=== PATIENT | male | born 1950 | race Caucasian/White ===

== ENCOUNTER 2018-02-11 20:19 | Inpatient (IN) | payer MEDICARE ==
[~2018-02-11 20:19] MED LIST: ISOVUE-370 76%-LOCM 1 ML ONE
[2018-02-11 23:14] VITALS: BMI 40.1
[2018-02-11] MEDS ORDERED: Sodium Chloride 0.9% 10 ML ONE (23:27)
--- NOTE | 2018-02-11 23:30 | CT ---
CT ANGIOGRAM THORAX WITH IV CONTRAST AND 3D RECONSTRUCTIONS: 02/11/18 HISTORY: Sepsis. Transfer from [place]. Fever and chills. COMPARISON: None available. FINDINGS: There is suboptimal timing of the contrast bolus with limited opacification of the pulmonary arteries limiting evaluation for pulmonary emboli. No definite pulmonary embolus is seen involving the centra l pulmonary arteries, but the segmental and subsegmental pulmonary arteries are not adequately evalua vandana. Vascular calcifications are seen in the thoracic aorta. The thoracic aorta is normal in caliber witho ut evidence of an aortic dissection. There is no evidence of lymphadenopathy. There is a tiny approximately 4 mm nodular density seen in the right middle lobe adjacent to the fiss ure and has a slight linear configuration and may be related to minimal pleural thickening. No additi onal discrete pulmonary nodule or mass is seen. There is dependent atelectasis present at each lung b ase. No pleural effusion is identified. There is a stable right adrenal nodule measuring 2.2 cm shown to represent an adrenal adenoma on prio r CT abdomen on 08/07/16. There is also stable nodular appearance of the left adrenal gland unchanged from prior exam and is also stable when compared to a study in 2009. There is a stable hypodense lesions seen within the medial aspect of the right hepatic lobe which can not be further characterized on this nonenhanced CT exam. This measures approximately 1.5 cm. Remainder of the upper abdomen demonstrates a normal CT appearance. Degenerative changes are present in the spine. IMPRESSION: 1. Suboptimal timing of the contrast bolus limiting evaluation for pulmonary embolus. 2. Vascular calcifications are seen in the thoracic aorta which is normal in caliber without patience dence of an aortic dissection. 3. Atelectasis bilaterally. 4. Stable right adrenal adenoma with stable nodular appearance of the left adrenal gland. 5. Stable hypodense lesion within the right hepatic lobe which cannot be further characterized o n this nonenhanced CT scan exam. POS: [facility]
[2018-02-11] MEDS: Sodium Chloride 0.9% 1,000 ML IV SCH (23:32)
[2018-02-11] MEDS ORDERED: Sodium Chloride 0.9% 1,000 ML IV SCH (23:45)
[2018-02-12] MEDS ORDERED: Ondansetron ODT 4 MG TAB SL PRN (00:01)
[2018-02-12] MEDS ORDERED: Ondansetron PF 4 MG/2 ML Vial IVP PRN ×2 (00:01→07:49)
[2018-02-12] MEDS ORDERED: cefTRIAXone\\ROCEPHIN 1 GM in Sodium Chloride 0.9% 100 ML IVPB SCH (01:00)
[2018-02-12] MEDS: Sodium Chloride 0.9% 1,000 ML IV SCH (05:45)
[2018-02-12] MEDS ORDERED: Senokot S 8.6-50 MG TAB PO PRN (07:49)
[2018-02-12] MEDS ORDERED: Ondansetron ODT 4 MG TAB PO PRN (07:49)
[2018-02-12] MEDS ORDERED: Nitroglycerin 0.4 MG TAB (25 Tab Bottle) PO PRN (07:51)
[2018-02-12 08:18] LABS: #Lymphocytes 1.6 thou/uL (1.20-3.40); #Monocytes 0.7 thou/uL (0.11-0.59); #Neutrophils 10.4 thou/uL (1.40-6.50); %Basophils 0.2 % (0.0-1.0); %Eosinophils 0.1 % (0.0-10.0); %Lymphocytes 12.8 % (21.0-51.0); %Monocytes 5.6 % (0.0-10.0); %Neutrophils 81.3 % (42.0-75.0); Hemoglobin 13.9 g/dL (14.0-18.0); Mean Corpuscular Hemoglobin 29.2 pg (27.0-31.0); Mean Corpuscular Volume 91.2 fL (78.0-98.0); Mean Platelet Volume 9.7 fL (7.4-10.4); Platelet Count 139 thou/uL (130-400); Red Blood Cell (RBC) Count 4.76 mill/uL (4.70-6.10); White Blood Cell (WBC) Count 12.8 thou/uL (4.8-10.8)
[2018-02-12 08:29] LABS: Lactic Acid 1.4 mmol/L (0.5-2.2)
[2018-02-12 08:31] LABS: Anion Gap 6 mmol/L (10-20); BUN (Urea Nitrogen) 13 mg/dL (8.4-25.7); Calc. Creatinine Clearance 145 mL/min (70-130); Calcium 8.3 mg/dL (7.8-10.44); Carbon Dioxide 25 mmol/L (23-31); Chloride 110 mmol/L (98-107); Estimated GFR-MDRD 80; Glucose 101 mg/dL (80-115); Magnesium 1.5 mg/dL (1.6-2.6); Sodium 137 mmol/L (136-145)
[2018-02-12] MEDS ORDERED: Prevnar 13-Val Conj/PF 0.5 ML SYRINGE IM ONE (09:00)
[2018-02-12] MEDS ORDERED: Magnesium 2 GM/50 ML 2 GM in Premix Bag 1 BAG IVPB SCH (09:00)
[2018-02-12] MEDS ORDERED: Doxycycline 100 MG CAP PO SCH (09:00)
[2018-02-12] MEDS: Enoxaparin Sodium 40 MG/0.4 ML SYRINGE SC SCH (10:09)
[2018-02-12] MEDS: Famotidine 20 MG TAB PO SCH ×2 (10:09→20:21)
--- NOTE | 2018-02-12 10:12 | ULT ---
RENAL ULTRASOUND: HISTORY: UTI with frequency. TECHNIQUE: Real-time imaging of the right and left kidneys was performed. FINDINGS: The right kidney measures 10.8 and the left kidney 12.9 cm in size. No signs of cyst, mass, or obstr uction. There is an echogenic focus within the right kidney, potentially a stone within the calyx, a nd a similar density in the left kidney. The patient had voided immediately prior to this examination, but the post void volume was 203 mL. B ilateral ureteral jets were noted. IMPRESSION: 1. Echogenic, nonshadowing densities within the cortex of both kidneys. Potentially these are nonob structing stones within the calices, although not entirely typical in appearance. Other entities, polk ch as angiomyolipoma, would be possibilities. No signs of obstruction. 2. Moderate post-void residual. POS: [facility]
[2018-02-12] MEDS: Sodium Chloride 0.45% 1,000 ML IV SCH (11:04)
[2018-02-12] MEDS: cefTRIAXone\\ROCEPHIN 2 GM in Sodium Chloride 0.9% 100 ML IVPB SCH (11:05)
--- NOTE | 2018-02-12 11:09 | HP ---
DATE OF ADMISSION: 02/12/2018 PRIMARY CARE PHYSICIAN: Dr. Gregory. PRIMARY UROLOGIST: The patient has seen Dr. Gray in the past. CHIEF COMPLAINT: Fever and chills. HISTORY OF PRESENT ILLNESS: Patient is a 67-year-old male with benign prostatic hypertrophy, present ed to [facility] with generalized weakness, fever, and chills. He also had some nonprod uctive cough. There was mild shortness of breath on mild to moderate exertion. He denies any nausea , vomiting, dysuria, hematuria, urgency, altered mentation, or skin rash. No chest pain, shortness o f breath, or palpitations reported. In the emergency room at [facility], his initial vital signs showed temperature of 101.4, respirations 20, pulse rate of 148 with blood pressure 163/95 with O2 saturation of 95% on room air. His lactic a boaz was 3.9. Chest x-ray showed questionable infiltrate. He was sent to this facility after one dos e of Levaquin and IV fluids. EKG showed sinus tachycardia. At this facility, he underwent a CT angiogram of the chest that showed bibasilar atelectasis. The st udy was suboptimal for pulmonary embolism. There was a stable right adrenal adenoma as well as stabl e hypodense lesion in the right hepatic lobe. PAST MEDICAL HISTORY: Benign prostatic hypertrophy requiring Rivera catheter in the past, history of enlarged heart many years ago. He has not followed up. PAST SURGICAL HISTORY: Cystoscopy, hemorrhoid surgery more than 20 years ago. ALLERGIES: No known drug allergies. CURRENT HOME MEDICATIONS: Reviewed with the patient and none. SOCIAL HISTORY: Patient currently lives at home with his son. His of breast cancer . He quit smoking more than 10 years ago. He is independent of activities of daily living. He is D O NOT RESUSCITATE. Son is the decision maker. FAMILY HISTORY: Father with lung cancer. REVIEW OF SYSTEMS: The following complete review of systems was negative, unless otherwise mentioned in the HPI or below: Constitutional: Weight loss or gain, ability to conduct usual activities. Skin: Rash, itching. Eyes: Double vision, pain. ENT/Mouth: Nose bleeding, neck stiffness, pain, tenderness. Cardiovascular: Palpitations, dyspnea on exertion, orthopnea. Respiratory: Shortness of breath, wheezing, cough, hemoptysis, fever or night sweats. Gastrointestinal: Poor appetite, abdominal pain, heartburn, nausea, vomiting, constipation, or diarr hea. Genitourinary: Urgency, frequency, dysuria, nocturia. Musculoskeletal: Pain, swelling. Neurologic/Psychiatric: Anxiety, depression. Allergy/Immunologic: Skin rash, bleeding tendency. PHYSICAL EXAMINATION: VITAL SIGNS: As discussed above. GENERAL: A 67-year-old male in no apparent distress, feels better. HEENT: Head atraumatic, normocephalic. Sclerae are anicteric. Moist mucous membrane, no oral lesio n. NECK: Supple. No JVD appreciated. No carotid bruit. LUNGS: Clear to auscultation bilaterally. HEART: S1, S2 present. Regular rate and rhythm. No rubs or gallops appreciated. ABDOMEN: Soft, nontender, bowel sounds present. EXTREMITIES: No edema or calf tenderness. NEUROLOGIC: Grossly nonfocal, moves all four extremities. PSYCHIATRY: Alert, awake, oriented x3. SKIN: Warm and dry. LYMPH NODES: No palpable lymph nodes in the neck. PERIPHERAL VASCULAR: Radial pulses palpable bilaterally. LABORATORY FINDINGS: Repeat lactic acid 1.4 from 3.9. WBC 12.8 with 87% neutrophils. D-dimer 1.24. Urinalysis showed greater than 50 wbc's with 4+ bacteria. Troponin was negative. BNP was negative . Influenza testing was negative. Chest x-ray by my review as discussed above. CT angiogram by my review as discussed above. IMPRESSION AND PLAN: 1. Sepsis with acute organ dysfunction secondary to urinary tract infection, rule out obstructive ur opathy. 2. Sinus tachycardia with heart rate of 148, probably supraventricular tachycardia. Her heart rate at this time is in 90s. 3. Benign prostatic hypertrophy requiring Rivera catheter in the past. 4. Metabolic acidosis/lactic acidosis secondary to sepsis. 5. Leukocytosis secondary to #1. 6. Chronic kidney disease stage 2. 7. Morbid obesity with a BMI 40.2. 8. History of cardiomyopathy with shortness of breath on ER arrival, rule out congestive heart failu re. 9. Hypomagnesemia. PLAN: The patient will be monitored on the telemetry unit. We will continue IV fluids. Continue ce ftriaxone. We will replace magnesium. Nebulizer treatment as needed. Vital signs q.4 hourly. Echo cardiogram will be obtained. We will consult walking program. DO NOT RESUSCITATE confirmed with the patient. Plan of care was discussed with the patient in detail . He stated understanding.
[2018-02-12] MEDS: Acetaminophen 325 MG TAB PO PRN ×3 (11:22→23:56)
[2018-02-12] MEDS ORDERED: Labetalol HCl 100 MG/20 ML VIAL SLOW IVP PRN (19:48)
[2018-02-12] MEDS ORDERED: Tamsulosin HCl 0.4 MG CAP PO SCH (21:00)
[2018-02-13] MEDS: Sodium Chloride 0.45% 1,000 ML IV SCH ×4 (04:33→21:26)
[2018-02-13 06:24] LABS: #Lymphocytes 1.2 thou/uL (1.20-3.40); #Monocytes 0.6 thou/uL (0.11-0.59); %Basophils 0.4 % (0.0-1.0); %Eosinophils 0.3 % (0.0-10.0); %Lymphocytes 16.7 % (21.0-51.0); %Monocytes 9.4 % (0.0-10.0); %Neutrophils 73.3 % (42.0-75.0); Hemoglobin 14.1 g/dL (14.0-18.0); Mean Corpuscular HGB CONC 31.2 g/dL (32.0-36.0); Mean Corpuscular Hemoglobin 28.1 pg (27.0-31.0); Mean Platelet Volume 10.4 fL (7.4-10.4); Platelet Count 144 thou/uL (130-400); RBC Distribution Width 12.1 % (11.5-14.5); Red Blood Cell (RBC) Count 5.02 mill/uL (4.70-6.10); White Blood Cell (WBC) Count 6.9 thou/uL (4.8-10.8)
[2018-02-13 06:52] LABS: ALT (SGPT) 14 U/L (8-55); AST (SGOT) 16 U/L (5-34); Albumin 3.5 g/dL (3.4-4.8); Alkaline Phosphatase 63 U/L (40-150); Anion Gap 12 mmol/L (10-20); BUN (Urea Nitrogen) 9 mg/dL (8.4-25.7); Bilirubin, Total 0.4 mg/dL (0.2-1.2); Calc. Creatinine Clearance 150 mL/min (70-130); Calcium 8.7 mg/dL (7.8-10.44); Carbon Dioxide 19 mmol/L (23-31); Chloride 110 mmol/L (98-107); Estimated GFR-MDRD 84; Globulin 3.3 g/dL (2.4-3.5); Glucose 103 mg/dL (80-115); Magnesium 2.2 mg/dL (1.6-2.6); Potassium 3.9 mmol/L (3.5-5.1); Protein, Total 6.8 g/dL (5.8-8.1); Sodium 137 mmol/L (136-145)
[2018-02-13] MEDS: cefTRIAXone\\ROCEPHIN 2 GM in Sodium Chloride 0.9% 100 ML IVPB SCH (08:57)
[2018-02-13] MEDS: Metoprolol Tartrate 25 MG TAB PO SCH ×2 (08:58→20:46)
[2018-02-13] MEDS: Tamsulosin HCl 0.4 MG CAP PO SCH ×2 (08:58→20:47)
[2018-02-13] MEDS: Enoxaparin Sodium 40 MG/0.4 ML SYRINGE SC SCH (08:58)
[2018-02-13] MEDS: Famotidine 20 MG TAB PO SCH ×2 (08:58→20:47)
--- NOTE | 2018-02-13 14:33 | PDOC.PN ---
- Subjective Encounter Start Date: 02/13/18 Encounter Start Time: 10:30 Patient seen and examined for Sepsis. Feels better. Urinary frequency/hesitancy/ fever last night. No other complaints. Overnight events noted - Objective Resuscitation Status: Resuscitation Status DNR:Do Not Resuscitate MAR Reviewed: Yes Vital Signs & Weight: Vital Signs (12 hours) Temp Pulse Resp BP Pulse Ox 02/13/18 11:26 98.1 F 93 16 148/67 H 96 02/13/18 11:18 88 20 02/13/18 08:56 113 H 140/78 02/13/18 08:05 116 H 20 95 02/13/18 08:00 97.7 F 112 H 18 179/91 H 96 02/13/18 04:32 109 H 20 142/76 H 02/13/18 03:10 97.7 F 100 17 169/88 H 95 02/13/18 02:32 94 16 95 Weight Weight 292 lb 14.4 oz I&O: 02/12/18 02/13/18 02/14/18 06:59 06:59 06:59 Intake Total 910 981 Output Total 400 950 Balance 510 31 Result Diagrams: 02/13/18 06:04 02/13/18 06:04 Radiology Reviewed by me: Yes (CXR - neg) EKG Reviewed by me: Yes (Tele ST) Phys Exam - Physical Examination Constitutional: NAD Respiratory: no wheezing, no rales, no rhonchi, clear to auscultation bilateral Cardiovascular: RRR, no rub no heaves/pulsations Gastrointestinal: soft, non-tender, no distention, positive bowel sounds Musculoskeletal: no edema, pulses present Neurological: non-focal, normal sensation, moves all 4 limbs Psychiatric: A&O x 3 Dx/Plan - Plan 1. Sepsis with acute organ dysfunction secondary to E coli bacteremia/E coli UTI Cont Ceftriaxone DC Levaquin 2. Sinus tachycardia with heart rate of 148, probably supraventricular tachycardia. Add low dose BB Echo reviewed 3. Benign prostatic hypertrophy with obstructive symptoms - Case d/w Dr Felipe Place Rivera catheter Change Flomax to BID Urology f/u on Feb 20 4. Metabolic acidosis/lactic acidosis secondary to sepsis. improving 5. Chronic kidney disease stage 2 / Morbid obesity with a BMI 40.2 / Hypomagnesemia. - replaced / Dilated aortic root 3.95cm on Echo / Chronic diastolic HF Review of Systems - Review of Systems Respiratory: negative: Cough, Dry, Shortness of Breath, Hemoptysis, SOB with Excertion, Pleuritic Pain, Sputum, Wheezing Cardiovascular: negative: chest pain, palpitations, orthopnea, paroxysmal nocturnal dyspnea, edema, light headedness, other - Medications/Allergies Allergies/Adverse Reactions: Allergies Allergy/AdvReac Type Severity Reaction Status Date / Time No Known Allergies Allergy Unverified 02/11/18 23:16 Medications: Current Medications Acetaminophen (Tylenol) 650 mg PO Q4H PRN PRN Reason: Headache/Fever/Mild Pain (1-3) Last Admin: 02/12/18 23:56 Dose: 650 mg Albuterol/Ipratropium (Duoneb) 3 ml NEB [id number] [facility] Last Admin: 02/13/18 11:18 Dose: 3 ml Albuterol/Ipratropium (Duoneb) 3 ml NEB [id number] PRN PRN Reason: SOB &/or Wheezing Enoxaparin Sodium (Lovenox) 40 mg SC 0900 [facility] Last Admin: 02/13/18 08:58 Dose: 40 mg Famotidine (Pepcid) 20 mg PO BID [facility] Last Admin: 02/13/18 08:58 Dose: 20 mg Ceftriaxone Sodium 2 gm/ (Sodium Chloride) 100 mls @ 200 mls/hr IVPB Q24HR [facility] Last Admin: 02/13/18 08:57 Dose: 100 mls Sodium Chloride (1/2 Normal Saline) 1,000 mls @ 75 mls/hr IV .[id number] [facility] Last Admin: 02/13/18 08:59 Dose: 1,000 mls Labetalol HCl (Normodyne) 20 mg SLOW IVP Q6H PRN PRN Reason: SBP GREATER THAN 160 Last Admin: 02/12/18 20:17 Dose: 20 mg Metoprolol Tartrate (Lopressor) 12.5 mg PO BID [facility] Last Admin: 02/13/18 08:58 Dose: 12.5 mg Nitroglycerin (Nitrostat) 0.4 mg PO Q5MIN PRN PRN Reason: Chest Pain Ondansetron HCl (Zofran Odt) 4 mg PO Q6H PRN PRN Reason: Nausea/Vomiting Ondansetron HCl (Zofran) 4 mg IVP Q6H PRN PRN Reason: Nausea/Vomiting Saccharomyces Boulardii (Florastor) 250 mg PO DAILY [facility] Senna/Docusate Sodium (Senokot S) 2 tab PO BID PRN PRN Reason: Constipation Sodium Chloride (Flush - Normal Saline) 10 ml IVF Q12HR [facility] Last Admin: 02/13/18 08:59 Dose: Not Given Sodium Chloride (Flush - Normal Saline) 10 ml IVF PRN PRN PRN Reason: Saline Flush Tamsulosin HCl (Flomax) 0.4 mg PO BID [facility] Last Admin: 02/13/18 08:58 Dose: 0.4 mg
[2018-02-13] MEDS ORDERED: Labetalol HCl 100 MG/20 ML VIAL SLOW IVP PRN (14:50)
[2018-02-14] MEDS: Metoprolol Tartrate 25 MG TAB PO SCH ×2 (09:25→21:14)
[2018-02-14] MEDS: Tamsulosin HCl 0.4 MG CAP PO SCH ×2 (09:25→21:15)
[2018-02-14] MEDS: Famotidine 20 MG TAB PO SCH ×2 (09:25→21:14)
[2018-02-14] MEDS: Saccharomyces boulardii 250 MG CAP PO SCH (09:25)
[2018-02-14] MEDS: Enoxaparin Sodium 40 MG/0.4 ML SYRINGE SC SCH (09:26)
[2018-02-14] MEDS: Sodium Chloride 0.45% 1,000 ML IV SCH (09:29)
[2018-02-14] MEDS: cefTRIAXone\\ROCEPHIN 2 GM in Sodium Chloride 0.9% 100 ML IVPB SCH (09:37)
--- NOTE | 2018-02-14 11:22 | EKG ---
Test Reason : Blood Pressure : / mmHG Vent. Rate : 115 BPM Atrial Rate : 115 BPM P-R Int : 122 ms QRS Dur : 092 ms QT Int : 340 ms P-R-T Axes : 024 016 035 degrees QTc Int : 470 ms Sinus tachycardia Otherwise normal ECG Confirmed by KENYATTA COOLEY, LIBRA ([id number]), editor in chief newspaper ORLIN VIRAMONTES ([id number]) on 02/14/2018 11:22:26 AM Referred By: Confirmed By:LIBRA YOU MD
--- NOTE | 2018-02-14 15:03 | PDOC.PN ---
- Subjective Encounter Start Date: 02/14/18 Encounter Start Time: 11:00 Patient seen and examined for Sepsis. No new complaints. No new CP/SOB/N/V. No overnight events - Objective Resuscitation Status: Resuscitation Status DNR:Do Not Resuscitate MAR Reviewed: Yes Vital Signs & Weight: Vital Signs (12 hours) Temp Pulse Resp BP Pulse Ox 02/14/18 14:21 108 H 24 H 02/14/18 12:00 98.5 F 111 H 22 H 159/83 H 96 02/14/18 10:44 100 24 H 02/14/18 08:55 97.7 F 101 H 18 104/67 94 L 02/14/18 06:49 93 L 02/14/18 06:45 93 20 93 L 02/14/18 03:28 98.0 F 107 H 20 140/89 94 L Weight Weight 292 lb 11.2 oz I&O: 02/13/18 02/14/18 02/15/18 06:59 06:59 06:59 Intake Total 981 1800 Output Total 950 2024 Balance 31 -225 Result Diagrams: 02/13/18 06:04 02/13/18 06:04 EKG Reviewed by me: Yes (Tele SR) Phys Exam - Physical Examination Constitutional: NAD Respiratory: no wheezing, no rhonchi Cardiovascular: RRR, no rub Gastrointestinal: soft, non-tender, positive bowel sounds Musculoskeletal: no edema Neurological: moves all 4 limbs Dx/Plan - Plan DVT proph w/SCDs 1. Sepsis with acute organ dysfunction secondary to E coli bacteremia/E coli UTI Cont Ceftriaxone - Change to Omnicef at dc 2. Sinus tachycardia with heart rate of 148, probably supraventricular tachycardia. Cont low dose BB Echo reviewed 3. Benign prostatic hypertrophy with obstructive symptoms - Case d/w Dr Felipe today Cont Rivera catheter Cont Flomax to BID Urology f/u on Feb 20 at 8 am 4. Metabolic acidosis/lactic acidosis secondary to sepsis. improving 5. Chronic kidney disease stage 2 / Morbid obesity with a BMI 40.2 / Hypomagnesemia. - replaced / Dilated aortic root 3.95cm on Echo / Chronic diastolic HF Review of Systems - Review of Systems Respiratory: negative: Cough, Dry, Shortness of Breath, Hemoptysis, SOB with Excertion, Pleuritic Pain, Sputum, Wheezing Cardiovascular: negative: chest pain, palpitations, orthopnea, paroxysmal nocturnal dyspnea, edema, light headedness, other - Medications/Allergies Allergies/Adverse Reactions: Allergies Allergy/AdvReac Type Severity Reaction Status Date / Time No Known Allergies Allergy Unverified 02/11/18 23:16 Medications: Current Medications Acetaminophen (Tylenol) 650 mg PO Q4H PRN PRN Reason: Headache/Fever/Mild Pain (1-3) Last Admin: 02/12/18 23:56 Dose: 650 mg Albuterol/Ipratropium (Duoneb) 3 ml NEB [id number] [facility] Last Admin: 02/14/18 14:21 Dose: 3 ml Albuterol/Ipratropium (Duoneb) 3 ml NEB [id number] PRN PRN Reason: SOB &/or Wheezing Enoxaparin Sodium (Lovenox) 40 mg SC 0900 [facility] Last Admin: 02/14/18 09:26 Dose: 40 mg Famotidine (Pepcid) 20 mg PO BID [facility] Last Admin: 02/14/18 09:25 Dose: 20 mg Sodium Chloride (1/2 Normal Saline) 1,000 mls @ 75 mls/hr IV .[id number] [facility] Last Admin: 02/14/18 09:29 Dose: 1,000 mls Ceftriaxone Sodium 2 gm/ (Sodium Chloride) 100 mls @ 200 mls/hr IVPB 0600 [facility] Labetalol HCl (Normodyne) 10 mg SLOW IVP Q4H PRN PRN Reason: Systolic BP > 180 Metoprolol Tartrate (Lopressor) 12.5 mg PO BID [facility] Last Admin: 02/14/18 09:25 Dose: 12.5 mg Nitroglycerin (Nitrostat) 0.4 mg PO Q5MIN PRN PRN Reason: Chest Pain Ondansetron HCl (Zofran Odt) 4 mg PO Q6H PRN PRN Reason: Nausea/Vomiting Ondansetron HCl (Zofran) 4 mg IVP Q6H PRN PRN Reason: Nausea/Vomiting Saccharomyces Boulardii (Florastor) 250 mg PO DAILY [facility] Last Admin: 02/14/18 09:25 Dose: 250 mg Senna/Docusate Sodium (Senokot S) 2 tab PO BID PRN PRN Reason: Constipation Sodium Chloride (Flush - Normal Saline) 10 ml IVF Q12HR [facility] Last Admin: 02/14/18 09:26 Dose: Not Given Sodium Chloride (Flush - Normal Saline) 10 ml IVF PRN PRN PRN Reason: Saline Flush Tamsulosin HCl (Flomax) 0.4 mg PO BID [facility] Last Admin: 02/14/18 09:25 Dose: 0.4 mg
[2018-02-15] MEDS ORDERED: cefTRIAXone\\ROCEPHIN 2 GM in Sodium Chloride 0.9% 100 ML IVPB SCH (06:00)
[2018-02-15 07:53] VITALS: BP 141/80; TEMP 98
[2018-02-15] MEDS: Famotidine 20 MG TAB PO SCH (09:12)
[2018-02-15] MEDS: Metoprolol Tartrate 25 MG TAB PO SCH (09:12)
[2018-02-15] MEDS: Tamsulosin HCl 0.4 MG CAP PO SCH (09:13)
[2018-02-15] MEDS: Saccharomyces boulardii 250 MG CAP PO SCH (09:13)
--- NOTE | 2018-02-15 12:44 | DIS ---
DATE OF DISCHARGE: 02/15/2018 DISCHARGE DISPOSITION: Home. FOLLOWUP: 1. Follow up with primary care physician, Dr. Gregory in 1 week. 2. Follow up with Dr. Gray on 02/20/2017 at 8:00 a.m. 3. The patient will be discharged home with Rivera catheter. ALLERGIES: No known drug allergies. The patient was seen on the day of discharge. Denies any new complaints, no chest pain, shortness of breath, palpitations reported. BRIEF HOSPITAL COURSE: The patient is a 67-year-old male with benign prostatic hypertrophy presented to the emergency room with fever and chills. Please refer to the history and physical for further d etails. The patient was admitted to the hospital with a diagnosis of sepsis with acute organ dysfunction seco ndary to urinary tract infection. He was started on broad spectrum antibiotics. Urine culture as we ll as blood cultures showed E. coli sensitive to cephalosporins. He was placed on ceftriaxone that h as been changed to oral Omnicef. A Rivera catheter has been placed due to high postvoid residual. Th e patient also had transient supraventricular tachycardia at the time of admission, probably due to a high fever. Echocardiogram was done that showed ejection fraction 50% -55% with grade I/III diastol ic dysfunction. Aortic root was dilated at 3.95 cm. Low dose beta blockers have been added. DISCHARGE MEDICATIONS: Omnicef 300 mg twice a day #20, Lopressor 12.5 b.i.d., Florastor 250 daily, F german 0.4 mg b.i.d. DIAGNOSTIC TESTS: Renal ultrasound showed probable nonobstructing stone within the calluses with mod erate postvoid residual. FINAL DIAGNOSES: 1. Sepsis with acute organ dysfunction secondary to Escherichia coli urinary tract infection as well as bacteremia. 2. Supraventricular tachycardia transient on admission. 3. Benign prostatic hypertrophy with obstructive symptoms. Rivera catheter has been placed. Flomax started. 4. Metabolic acidosis/lactic acidosis. 5. Chronic kidney disease stage 2. 6. Morbid obesity with a BMI of 40.2. 7. Hypomagnesemia. 8. Chronic diastolic heart failure. 9. Dilated aortic root at 3.95 cm on echo. Primary care physician is advised to follow. Plan of care was discussed with the patient and the son at the bedside. They stated understanding.
== END 2018-02-15 10:55 | disposition home or self-care (01) | DRG 872 ==
LOC: ERS 20:19 → 2NO 21:26
PROVIDERS: ADMIT Internal Medicine; ATTEND Internal Medicine
DX: A41.51 Sepsis due to Escherichia coli [E. coli] (principal); N13.8 Other obstructive and reflux uropathy; N39.0 Urinary tract infection, site not specified; E87.2 Acidosis; Z68.41 Body mass index [BMI] 40.0-44.9, adult; I42.9 Cardiomyopathy, unspecified; I47.1 Supraventricular tachycardia; I50.32 Chronic diastolic (congestive) heart failure; N40.1 Benign prostatic hyperplasia with lower urinary tract symptoms; R65.20 Severe sepsis without septic shock; N18.2 Chronic kidney disease, stage 2 (mild); N20.0 Calculus of kidney; E83.42 Hypomagnesemia; E66.01 Morbid (severe) obesity due to excess calories; I77.819 Aortic ectasia, unspecified site; Z87.891 Personal history of nicotine dependence
CPT/HCPCS: 36415; 71275; 76770; 80048; 80053; 83605; 83735; 83880; 84443; 84484; 85025; 85379; 90471; 90662; 90670; 93005; 93306; 94640; 94760; 96365; 96366; G0008; G0009; J0696; J1650; J1956; J7050; J7620; Q0162

== ENCOUNTER 2018-03-23 10:32 | Outpatient (CLI) | payer MEDICARE ==
[2018-03-23] MEDS ORDERED: Iopamidol 370 76% 100 ML VIAL ONE (12:44)
--- NOTE | 2018-03-23 13:08 | CT ---
CT ABDOMEN AND PELVIS WITHOUT AND WITH CONTRAST: Comparison: 06-20-08 History: BPH. Difficulty emptying his bladder. Bladder infection. Technique: Multiple contiguous axial images were obtained in a CT of the abdomen and pelvis without a nd with IV contrast. Coronal reformats were performed. Post contrast images were obtained in nephrogr aphic and excretory phases. FINDINGS: There is a subcentimeter hypodensity in the right lobe of the liver. This may slightly fill in on the more delayed phase images and could represent a small hemangioma. There are subcentimeter hypodensit ies in both kidneys which do not demonstrate obvious enhancement and likely represent cysts. They are too small to definitely characterize. No calcifications are seen in either kidney, either ureter, or within the urinary bladder. No filling defect is seen within either renal collecting system. There i s moderate hypertrophy of the prostate. No urinary bladder abnormality is seen. The gallbladder, left adrenal gland, spleen, and pancreas are unremarkable. There is a 2.3 cm mass in the right adrenal gland with a mean Hounsfield unit value of -8. This is consistent with a fat conta ining adrenal adenoma. Degenerative changes are seen in the spine. There is a fat containing small umbilical hernia. There a re atherosclerotic calcifications seen in the aorta. No abdominal or pelvic lymphadenopathy are seen. Abdominal wall soft tissues and visualized inferior thorax are unremarkable. IMPRESSION: 1. Bilateral renal cysts. 2. Fat containing right adrenal adenoma. 3. Possible hepatic hemangioma versus cyst. POS: [facility]
== END 2018-03-23 10:33 | disposition home or self-care (01) ==
LOC: BICCT 10:32
PROVIDERS: ATTEND Urology
DX: N41.0 Acute prostatitis (principal); N40.1 Benign prostatic hyperplasia with lower urinary tract symptoms; R33.9 Retention of urine, unspecified; N28.9 Disorder of kidney and ureter, unspecified; D35.01 Benign neoplasm of right adrenal gland; N28.1 Cyst of kidney, acquired
CPT/HCPCS: 74178

== ENCOUNTER 2018-09-17 07:48 | Day surgery (SDC) | payer MEDICARE ==
[2018-09-16 10:53] VITALS: BMI 39.0
[2018-09-17] MEDS ORDERED: Heparin 10,000 UNITS/1 ML VIAL ONE (10:04)
[2018-09-17] MEDS ORDERED: Verapamil 5 MG/2 ML VIAL ONE (10:04)
[2018-09-17] MEDS ORDERED: Nitroglycerin 100MG/250ML BOT 250 ML ONE (10:04)
[2018-09-17] MEDS ORDERED: Midazolam HCl 2 mg/2 ml Vial ONE (10:07)
[2018-09-17] MEDS ORDERED: Fentanyl 100 MCG/2 ML VIAL ONE (10:08)
[2018-09-17] MEDS ORDERED: Iopamidol 370 76% 100 ML VIAL ONE (10:48)
== END 2018-09-17 12:54 | disposition home or self-care (01) ==
LOC: SDC 07:48
PROVIDERS: ATTEND Internal Medicine Cardiovascular Disease
PROC: 4A023N7 Measurement of Cardiac Sampling and Pressure, Left Heart, Percutaneous Approach (ICD-10-PCS; principal; 2018-09-17)
PROC: B2001ZZ Plain Radiography of Single Coronary Artery using Low Osmolar Contrast (ICD-10-PCS; 2018-09-17)
DX: R94.39 Abnormal result of other cardiovascular function study (principal); R06.02 Shortness of breath; E66.9 Obesity, unspecified; Z68.39 Body mass index [BMI] 39.0-39.9, adult; Z79.899 Other long term (current) drug therapy; Z87.891 Personal history of nicotine dependence
CPT/HCPCS: 93458; C1769; 99152; J1644; J2250; J3010; Q9967

== ENCOUNTER 2018-12-22 09:12 | Outpatient (CLI) | payer MEDICARE ==
[2018-12-22 11:19] LABS: PTT 37.6 SEC (22.9-36.1); Prothrombin Time 13.2 SEC (12.0-14.7)
[2018-12-22 11:22] LABS: Bacteria/HPF None Seen HPF (None Seen); Bilirubin Negative (Negative); Blood, Urine Negative (Negative); Clarity Clear (Clear); Glucose, Urine (Dipstick) Normal (Negative); Hemoglobin 16.1 g/dL (14.0-18.0); Leukocyte Negative Leu/uL (Negative); Mean Corpuscular HGB CONC 33.8 g/dL (32.0-36.0); Mean Corpuscular Hemoglobin 30.2 pg (27.0-31.0); Mean Corpuscular Volume 89.3 fL (78.0-98.0); Mean Platelet Volume 10.5 fL (7.4-10.4); Nitrite Negative (Negative); Platelet Count 171 thou/uL (130-400); Protein, Urine (Dipstick) Negative (Neg-Trace); RBC Distribution Width 11.9 % (11.5-14.5); Red Blood Cell (RBC) Count 5.33 mill/uL (4.70-6.10); Squamous Epithelial 0-3 HPF (0-3); Urobilinogen Normal mg/dL (Less than 2); WBC/HPF 0-3 HPF (0-3); White Blood Cell (WBC) Count 7.7 thou/uL (4.8-10.8)
[2018-12-22 11:41] LABS: Anion Gap 12 mmol/L (10-20); BUN (Urea Nitrogen) 14 mg/dL (8.4-25.7); Calc. Creatinine Clearance 0 mL/min (70-130); Calcium 9.5 mg/dL (7.8-10.44); Carbon Dioxide 23 mmol/L (23-31); Chloride 108 mmol/L (98-107); Estimated GFR-MDRD 75; Glucose 120 mg/dL (80-115); Potassium 3.7 mmol/L (3.5-5.1); Sodium 139 mmol/L (136-145)
--- NOTE | 2018-12-24 16:45 | EKG ---
Test Reason : Blood Pressure : / mmHG Vent. Rate : 091 BPM Atrial Rate : 091 BPM P-R Int : 126 ms QRS Dur : 096 ms QT Int : 368 ms P-R-T Axes : 047 039 069 degrees QTc Int : 452 ms Normal sinus rhythm Normal ECG Confirmed by NIRMAL CAN ([id number]) on 12/24/2018 4:45:14 PM Referred By: RONDA Confirmed By:NIRMAL CAN
== END 2018-12-22 09:13 | disposition home or self-care (01) ==
LOC: LABBT 09:12
PROVIDERS: ATTEND Urology
DX: Z01.818 Encounter for other preprocedural examination (principal)
CPT/HCPCS: 80048; 81001; 85027; 85610; 85730; 87086; 93005; 93010

== ENCOUNTER 2019-01-04 06:31 | Inpatient (IN) | payer MEDICARE ==
[2019-01-04] MEDS ORDERED: Levofloxacin 500 mg/D5W 100 ml Premix Bag ONE (07:37)
[2019-01-04] MEDS ORDERED: Fentanyl 100 MCG/2 ML VIAL ONE ×2 (10:02→16:49)
[2019-01-04] MEDS ORDERED: SUGAMMADEX SODIUM 500 MG/5 ML VIAL ONE (12:56)
[2019-01-04] MEDS ORDERED: Mag-Al 1200 mg/1200 mg/30 ML UDCUP PO PRN (13:13)
[2019-01-04] MEDS ORDERED: diphenhydrAMINE 50 MG/ML VIAL IVP PRN (13:13)
[2019-01-04] MEDS ORDERED: Oxybutynin 5 MG TAB PO PRN (13:13)
[2019-01-04] MEDS ORDERED: Morphine 4 MG/ML VIAL SLOW IVP PRN (13:13)
[2019-01-04] MEDS ORDERED: Ondansetron PF 4 MG/2 ML Vial IVP PRN (13:13)
[2019-01-04] MEDS ORDERED: Phenazopyridine HCl 97.5 MG TABLET PO PRN (13:13)
[2019-01-04] MEDS ORDERED: Bisacodyl 10 MG SUPP PR PRN (13:13)
[2019-01-04] MEDS ORDERED: HYDROcodone/Acetaminophen 7.5/325 mg Tablet PO PRN ×2 (13:13)
[2019-01-04] MEDS ORDERED: Ondansetron HCl/PF 4 MG/2 ML Vial IVP PRN (13:16)
[2019-01-04] MEDS ORDERED: Promethazine HCl 25 MG/ML VIAL IM PRN (13:16)
[2019-01-04] MEDS ORDERED: Promethazine HCl 25 MG/ML VIAL SLOW IVP PRN (13:16)
[2019-01-04 13:44] LABS: #Eosinphils 0.1 thou/uL (0.0-0.7); #Lymphocytes 2.2 thou/uL (1.20-3.40); #Monocytes 0.4 thou/uL (0.11-0.59); #Neutrophils 4.5 thou/uL (1.40-6.50); %Basophils 0.6 % (0.0-1.0); %Monocytes 6.1 % (0.0-10.0); %Neutrophils 62.3 % (42.0-75.0); Mean Corpuscular HGB CONC 33.3 g/dL (32.0-36.0); Mean Corpuscular Hemoglobin 29.4 pg (27.0-31.0); Mean Corpuscular Volume 88.5 fL (78.0-98.0); Mean Platelet Volume 9.9 fL (7.4-10.4); Platelet Count 160 thou/uL (130-400); RBC Distribution Width 11.8 % (11.5-14.5); Red Blood Cell (RBC) Count 4.75 mill/uL (4.70-6.10); White Blood Cell (WBC) Count 7.2 thou/uL (4.8-10.8)
[2019-01-04 14:04] LABS: Anion Gap 8 mmol/L (10-20); BUN (Urea Nitrogen) 11 mg/dL (8.4-25.7); Calc. Creatinine Clearance 133 mL/min (70-130); Calcium 8.6 mg/dL (7.8-10.44); Carbon Dioxide 28 mmol/L (23-31); Chloride 108 mmol/L (98-107); Estimated GFR-MDRD 77; Glucose 91 mg/dL (80-115); Potassium 4.1 mmol/L (3.5-5.1); Sodium 140 mmol/L (136-145)
[2019-01-04] MEDS ORDERED: Ondansetron PF 4 MG/2 ML Vial ONE (16:54)
[2019-01-04] MEDS ORDERED: PHENYLEPHRINE-NS 100 MCG/ML 10 ML SYRINGE ONE (16:54)
[2019-01-04] MEDS ORDERED: Rocuronium Bromide 10 MG/ML (10ML VIAL) ONE (16:54)
[2019-01-04] MEDS ORDERED: Dexamethasone 20 MG/5 ML VIAL ONE (16:54)
[2019-01-04] MEDS ORDERED: Lidocaine 1% PF 5 ML VIAL ONE (16:54)
[2019-01-04] MEDS ORDERED: PROPOFOL 200 MG/20 ML VIAL ONE (16:54)
[2019-01-04] MEDS ORDERED: Labetalol HCl 100 MG/20 ML VIAL ONE (17:04)
[2019-01-04 18:45] VITALS: BMI 39.0
[2019-01-04] MEDS: Famotidine/PF 20 mg/2ml Vial SLOW IVP SCH (21:01)
[2019-01-04] MEDS: cefTRIAXone\\ROCEPHIN 1 GM in Sodium Chloride 0.9% 100 ML IVPB SCH (21:01)
[2019-01-04] MEDS: Docusate 100 MG CAP PO SCH (21:01)
[2019-01-04] MEDS ORDERED: Labetalol HCl 100 MG/20 ML VIAL SLOW IVP PRN (21:37)
[2019-01-05] MEDS: Sodium Chloride 0.9% 1,000 ML IV SCH ×4 (01:30→23:58)
[2019-01-05 04:24] LABS: #Lymphocytes 1.5 thou/uL (1.20-3.40); #Monocytes 0.7 thou/uL (0.11-0.59); #Neutrophils 9.6 thou/uL (1.40-6.50); %Basophils 0.3 % (0.0-1.0); %Eosinophils 0.1 % (0.0-10.0); %Monocytes 5.6 % (0.0-10.0); %Neutrophils 81.1 % (42.0-75.0); Hemoglobin 14.6 g/dL (14.0-18.0); Mean Corpuscular HGB CONC 33.7 g/dL (32.0-36.0); Mean Corpuscular Hemoglobin 30.4 pg (27.0-31.0); Mean Corpuscular Volume 90.2 fL (78.0-98.0); Mean Platelet Volume 10.6 fL (7.4-10.4); Platelet Count 175 thou/uL (130-400); Red Blood Cell (RBC) Count 4.79 mill/uL (4.70-6.10); White Blood Cell (WBC) Count 11.9 thou/uL (4.8-10.8)
[2019-01-05 05:30] LABS: Anion Gap 11 mmol/L (10-20); BUN (Urea Nitrogen) 12 mg/dL (8.4-25.7); Calc. Creatinine Clearance 146 mL/min (70-130); Calcium 8.5 mg/dL (7.8-10.44); Carbon Dioxide 23 mmol/L (23-31); Chloride 108 mmol/L (98-107); Estimated GFR-MDRD 87; Glucose 102 mg/dL (80-115); Potassium 3.9 mmol/L (3.5-5.1); Sodium 138 mmol/L (136-145)
[2019-01-05] MEDS: Dutasteride 0.5 MG CAP PO SCH (08:25)
[2019-01-05] MEDS: Docusate 100 MG CAP PO SCH ×2 (08:25→20:34)
[2019-01-05] MEDS: Famotidine/PF 20 mg/2ml Vial SLOW IVP SCH ×2 (08:26→20:35)
[2019-01-05] MEDS: Tamsulosin HCl 0.4 MG CAP PO SCH (08:26)
--- NOTE | 2019-01-05 08:29 | PRG ---
DATE OF SERVICE: 01/05/2019 SUBJECTIVE: The patient without complaints. Had an episode of nausea yesterday ; however, it has resolved. OBJECTIVE: VITAL SIGNS: Stable. He is afebrile. I's and O's, his CBI was at a low rate, with Rivera catheter on traction, was taken off traction this morning, CBI held; however, had some clots, therefore we regarded manual irrigation. No obvious clots were seen; however, with irrigation, catheter subsequently draining. CBI restarted off traction, 40 mL in the balloon, -10 removed with a total of 30 mL left in the balloon. LABORATORY DATA: His labs are stable today with hemoglobin stable at 14, white count 11, creatinine 0.8. IMPRESSION AND PLAN: Mr. Michel is a 68-year-old male postoperative day #1, status post urethral stricture dilatation, staged transurethral resection of the prostate. We will continue to monitor patient on CBI. Anticipate patient to be admitted for another overnight to monitor CBI. will hold the CBI tomorrow and reassess. Job ID: [id number] [facility]
[2019-01-05] MEDS ORDERED: Tamsulosin HCl 0.4 MG CAP PO SCH (09:00)
--- NOTE | 2019-01-05 10:47 | OP ---
DATE OF PROCEDURE: 01/04/2019 PREOPERATIVE DIAGNOSES: 1. A 68-year-old male with history of trilobar hyperplasia of the prostate. 2. History of urinary tract infection, Escherichia coli urosepsis. 3. History of incomplete void/urinary retention. 4. Urethral stricture, 14-Grenadian caliber, bulbar urethra. POSTOPERATIVE DIAGNOSES: 1. A 68-year-old male with history of trilobar hyperplasia of the prostate. 2. History of urinary tract infection, Escherichia coli urosepsis. 3. History of incomplete void/urinary retention. 4. Urethral stricture, 14-Grenadian caliber, bulbar urethra. PROCEDURES PERFORMED: 1. Cystoscopy. 2. Urethral stricture dilatation. 3. Transurethral resection of prostate. ANESTHESIA: General. IV FLUIDS: 1500 mL. ESTIMATED BLOOD LOSS: Less than 150 mL. COMPLICATIONS: None apparent. DISPOSITION: To recovery room in stable condition. INDICATIONS FOR PROCEDURE AND HISTORY: Mr. Michel is a pleasant 68-year-old male whom I had seen as an inpatient consultation long time ago back in 2009, as he presented with acute urinary retention with unknown PVR. He was provided dual medical therapy, underwent prostate biopsy, which was negative for malignancy. Subsequently, he was noncompliant. He re-presented due to history of E coli urosepsis with urinary retention. He desired to proceed with surgical intervention. Workup demonstrated a very large prostate volume. Cystoscopy demonstrated incidental urethral stricture and presents today for urethral stricture dilatation and transurethral resection of prostate. Risks and complications and indications of the procedure was reviewed with him in detail including, but not limited to, bleeding, pain, infection, injury to adjacent organs, incontinence, bladder and urethral injury, likely stage intervention given very large prostate volume. He desired to proceed. We discussed alternatives of the procedure including ongoing dual medical therapy, other modalities such as suprapubic prostatectomy, laser enucleation. He desired to proceed with surgical intervention with me in a staged manner if indicated. DESCRIPTION OF PROCEDURE: After informed consent was signed, the patient was taken to the operating room and placed in a dorsal lithotomy position with the genital area prepped and draped in the usual surgical sterile fashion. A 21-Grenadian cystoscope was utilized for cystoscopy, again demonstrating a 14-Grenadian bulbar urethral stricture. I was able to gently negotiate my scope, passively dilating the stricture to the level of the prostatic urethra, which demonstrated significant severe trilobar hyperplasia of the prostate with intravesical median lobe. The median lobe component is small, the UOs were seen about 3 to 4 mm away from the reflection of the median lobe. There were multiple cellule trabeculation, consistent with chronic outlet obstruction. There was a small cellule at the posterior wall. No bladder stones or tumors were seen. At this time, we passively dilated his urethral stricture to 25-Grenadian sheath. We subsequently passed a 26-Grenadian resectoscope with a visual obturator, able to bypass the urethral stricture, passively dilating it atraumatically. At this time, we then transitioned to a Gyrus bipolar and a transurethral resection of the prostate was performed. While avoiding the UOs to keep out of harm's way, we resected the median lobe, down flushed to the bladder neck. Then, we subsequently resected the lateral lobes in a systematic manner. As his prostatic urethral length is quite long with a very large prostate, we had to perform the resection in quadrants of four from the bladder neck to the mid prostate and mid to the apical prostate. We performed this by resecting the lateral lobes that are obstructing flush to the prostatic urethral mucosa. The patient was fully aware that he will most likely require staged intervention. However, we did make significant progress with a wide bladder neck and the obstructive lateral lobes did resolve at the end of the procedure. Good hemostasis was noted. All chips were evacuated with Ellik evacuator. A 22-Grenadian 3-way Rivera catheter was passed without guidewire assist. As there was a median lobe, there was some undermining of the bladder neck. I was able to pass a 22-Grenadian with mild resistance at the bladder neck; however, able to be passed to the bladder without guidewire assist and 40 mL of sterile water was insufflated. CBI tubing was attached. We will monitor him with Rivera catheter off tension. If significant hematuria, we will go ahead and place his Rivera on traction with CBI. Currently draining light red output. We will monitor CBC and BMP overnight. He will continue his BPH medications. Anticipate the patient will be discharged with indwelling Rivera catheter as his urethral stricture was also dilated. Job ID: [id number] [facility]
[2019-01-05] MEDS: cefTRIAXone\\ROCEPHIN 1 GM in Sodium Chloride 0.9% 100 ML IVPB SCH (14:41)
[2019-01-06 05:34] LABS: Hemoglobin 13.7 g/dL (14.0-18.0); Mean Corpuscular HGB CONC 32.8 g/dL (32.0-36.0); Mean Corpuscular Hemoglobin 29.6 pg (27.0-31.0); Mean Corpuscular Volume 90.3 fL (78.0-98.0); Mean Platelet Volume 10.5 fL (7.4-10.4); Platelet Count 156 thou/uL (130-400); RBC Distribution Width 12.1 % (11.5-14.5); Red Blood Cell (RBC) Count 4.62 mill/uL (4.70-6.10); White Blood Cell (WBC) Count 10.3 thou/uL (4.8-10.8)
[2019-01-06 07:55] VITALS: BP 143/87; TEMP 98.7
[2019-01-06] MEDS: Sodium Chloride 0.9% 1,000 ML IV SCH (09:53)
[2019-01-06] MEDS: Docusate 100 MG CAP PO SCH (09:53)
[2019-01-06] MEDS: Dutasteride 0.5 MG CAP PO SCH (09:54)
[2019-01-06] MEDS: Tamsulosin HCl 0.4 MG CAP PO SCH (09:54)
[2019-01-06] MEDS: Famotidine/PF 20 mg/2ml Vial SLOW IVP SCH (09:54)
--- NOTE | 2019-01-06 10:47 | DIS ---
DATE OF ADMISSION: 01/04/2019 DATE OF DISCHARGE: 01/06/2019 ADMITTING DIAGNOSES: History of benign prostatic hypertrophy, recurrent urinary tract infection, urinary retention. DISCHARGE DIAGNOSES: History of benign prostatic hypertrophy, recurrent urinary tract infection, urinary retention. PROCEDURE PERFORMED: Cystoscopy, urethral stricture dilatation, transurethral resection of prostate, staged. DISPOSITION: To home, stable. DISCHARGE INSTRUCTIONS: Indwelling Rivera catheter to gravity leg bag. No aspirin. No ibuprofen products. DISCHARGE MEDICATIONS: 1. Ciprofloxacin 500 mg one p.o. b.i.d. x10 days. 2. Colace 100 mg one p.o. b.i.d. p.r.n. 3. He is to continue his BPH prostate medication, Avodart and Flomax, and his blood pressure medication. No aspirin or ibuprofen products. BRIEF HOSPITAL COURSE: Mr. Michel is a pleasant 68-year-old male with history of recurrent urinary retention, UTI, who presents for urethral stricture dilatation , TURP. Surgery was uneventful. His CBI was held on postop day #1; however, due to persistent hematuria required re-initiation of CBI. His H and H remained stable. CBI was held this morning with pink-tinged chester urine with no clots. The patient is stable for discharge. Followup appointment next Friday at 8 a.m. for a voiding trial. DISPOSITION: Home with good family assist. Job ID: [id number] [id number]
== END 2019-01-06 09:40 | disposition home or self-care (01) | DRG 713 ==
LOC: SDC 06:31 → OBSVTOIN 13:13 → SURG B 13:13
PROVIDERS: ADMIT Urology; ATTEND Urology
PROC: 0VT08ZZ Resection of Prostate, Via Natural or Artificial Opening Endoscopic (ICD-10-PCS; principal; 2019-01-04)
PROC: 0T7D8ZZ Dilation of Urethra, Via Natural or Artificial Opening Endoscopic (ICD-10-PCS; 2019-01-04)
DX: N40.1 Benign prostatic hyperplasia with lower urinary tract symptoms (principal); N02.9 Recurrent and persistent hematuria with unspecified morphologic changes; N39.0 Urinary tract infection, site not specified; N35.912 Unspecified bulbous urethral stricture, male; Z87.440 Personal history of urinary (tract) infections
CPT/HCPCS: 36415; 80048; 85025; 85027; 86850; 86900; 86901; 88305; J0696; J1956; J3010; J3490; S0028